=== PATIENT | male | born 1985 | race Caucasian/White ===

== ENCOUNTER 2019-09-16 16:38 | Emergency (ER) | payer BC, SELFPAY ==
--- NOTE | 2019-09-16 16:45 | ED.GENADULT ---
HPI - General Adult General Chief complaint: Unspecified Stated complaint: muscle aches Time Seen by Provider: 09/16/19 17:05 Source: patient Mode of arrival: ambulatory Limitations: no limitations History of Present Illness HPI narrative: 34-year-old male patient presents the [facility] care with request for return to work note. Patient states that yesterday he was working out into the heat. Patient states that he thought he was staying well-hydrated and then on the way home he started getting spasms to his back. Patient states it was happening periodically throughout the night and states he was just very tired when he got home. Patient states he woke up this morning to go to work but continued to feel very tired and having muscle spasms and called off work today. Patient here because he is requesting note. Denies any fevers, nausea, vomiting or diarrhea. Related Data Allergies Allergy/AdvReac Type Severity Reaction Status Date / Time meloxicam Allergy Unknown Unknown Verified 09/16/19 17:19 No Known Allergies Allergy Verified 09/16/19 17:19 Review of Systems Review of Systems: Narrative: CONSTITUTIONAL: Denies fever, chills, or sweats. EYES: Denies visual changes, redness, or discharge. ENT: Denies rhinorrhea, congestion, sore throat, or otalgia. CARDIOVASCULAR: Denies chest pain, palpitations, or edema. RESPIRATORY: Denies cough or dyspnea. GASTROINTESTINAL: Denies abdominal pain, nausea, vomiting, or diarrhea. GENITOURINARY: Denies dysuria or hematuria. SKIN: Denies rash or itching. MUSCULOSKELETAL: Denies back pain, joint pain, or myalgia. Positive muscle aches and spasms NEUROLOGIC: Denies headache, numbness, or weakness. PSYCHIATRIC: Denies anxiety or depression. [facility] Family History Family History Father Family history of diabetes mellitus in first degree relative Social History Social History Smoking status: Never smoker Alcohol intake: never Comments At the time of my signature I agree with nursing past medical history, surgical, social, and family history. There is no relevant family history pertinent to the presenting complaint. Exam Narrative: Exam Narrative: GENERAL: Well-appearing, well-nourished, and in no acute distress. HEAD: Normocephalic, atraumatic. EYES: PERRLA and EOMI. ENT: Nares clear, no rhinorrhea or epistaxis. Mucous membranes moist. Posterior pharynx with no erythema, tonsillectomy, exudates or lesions present. Bilateral TMs are clear with no erythema or foreign bodies in the canal. NECK: Supple. No lymphadenopathy CHEST: Clear to auscultation. No respiratory distress. HEART: Regular rate and rhythm. No murmur heard. Normal peripheral pulses. ABDOMEN: Soft, nontender, nondistended, normal active bowel sounds. EXTREMITIES: Normal range of motion. No edema. SKIN: Warm, dry, no rash. NEURO: No focal deficits. Alert and oriented x3. Course Vital Signs Vital signs: Vital Signs Temperature 36.7 C 09/16/19 16:50 Pulse Rate 91 09/16/19 16:50 Respiratory Rate 16 09/16/19 16:50 Blood Pressure 134/79 09/16/19 16:50 Pulse Oximetry 97 09/16/19 16:50 Temperature 36.7 C 09/16/19 16:50 Pulse Rate 91 09/16/19 16:50 Respiratory Rate 16 09/16/19 16:50 Blood Pressure 134/79 09/16/19 16:50 Pulse Oximetry 97 09/16/19 16:50 Vital signs reviewed. The patient has been informed that they may have pre-hypertension or Hypertension based on a BP reading in the department. I recommend that the patient call the primary care provider listed on their discharge instructions or a physician of their choice this week to arrange follow up for further evaluation of possible pre-hypertension or Hypertension Medical Decision Making Differential Diagnosis Differential Diagnosis: Differential diagnosis: Allergic rhinitis, chronic sinusitis, tonsillitis, acute sinusitis, infect
[2019-09-16 16:50] VITALS: BP 134/79; PULSE 91; RESP 16; TEMP 36.7; O2SAT 97
--- NOTE | 2019-09-16 17:15 | PCDIET ---
Patient is requesting a work note to return to work at this time. He states that yesterday he began having muscle spasms after getting off work and was very tired and could not sleep restfully through the night. Patient states he slept several hours today and is no longer feeling tired or having muscle spasms. He states that he attributes his issues with the fact that he works outdoors and the symptoms he felt were heat related. His workplace insists that he have a note to return to work.
== END 2019-09-16 17:25 | disposition home or self-care (01) ==
PROVIDERS: Emergency Provider Nurse Practitioner Family
DX: M79.10 Myalgia, unspecified site (principal); Z20.828 Contact with and (suspected) exposure to other viral communicable diseases; T67.9XXA Effect of heat and light, unspecified, initial encounter
CPT/HCPCS: 99203; G0463

== ENCOUNTER 2019-10-24 13:22 | Emergency (ER) | payer BC, SELFPAY ==
--- NOTE | 2019-10-24 13:26 | ED.GENADULT ---
HPI - General Adult General Chief complaint: Upper Respiratory Infection Stated complaint: cough/vomitting/lightheaded Time Seen by Provider: 10/24/19 13:49 Source: patient and RN notes reviewed Mode of arrival: ambulatory Limitations: no limitations History of Present Illness HPI narrative: This is a 34 years old male presented office for evaluation of dry cough for two days. He coughs so hard that he vomits. He also reports feeling malaise, tired/exhausted with decrease in appetite. He only had a bowl of cereal for breakfast all day. Denies sick contact. He calls off work yesterday and now he can not go back until he gets a note. Related Data Home Medications Medication Instructions Recorded Confirmed No Home Medications 09/16/19 09/16/19 Allergies Allergy/AdvReac Type Severity Reaction Status Date / Time meloxicam Allergy Unknown Unknown Verified 10/24/19 13:51 Review of Systems Review of Systems: Narrative: CONSTITUTIONAL: Denies fever, chills ENT: Reports slight sore throat. Denies otalgia. CARDIOVASCULAR: Denies chest pain, palpitation RESPIRATORY: Denies dyspnea, wheezing. Reports cough GASTROINTESTINAL: Denies abdominal pain. Reports feeling nausea with decrease appetite. SKIN: Denies rash MUSCULOSKELETAL: Denies acute back pain NEUROLOGIC: Denies lightheaded All other systems reviewed are negative, except as documented in HPI. [facility] Family History Family History Father Family history of diabetes mellitus in first degree relative Social History Social History (Updated 10/24/19 @ 13:50 by GAVI Spivey) Smoking status: Former smoker Alcohol intake: never Gender identity (if verbalized by the patient): Male Comments At time of signature, I agree with nursing past medical, surgical, social and family history. There is no relevant family history pertinent to the presenting complaint. Exam Narrative: Exam Narrative: GENERAL: This is a well-nourished, well-developed patient, in no apparent distress. EYES: Sclera clear/white. Vision is grossly intact. EARS: External ears normal, auditory canals clear and without drainage, TMs normal without perforation. Hearing grossly intact. NOSE: External nose normal with no obvious nasal discharge, nares without redness, no rhinorrhea. THROAT: Mucous membranes moist, posterior pharynx clear. NECK: Neck supple, non-tender without lymphadenopathy, masses or thyromegaly. CARDIOVASCULAR: Regular rate and rhythm without murmurs, gallops, or rubs. RESPIRATORY: Clear to auscultation. Breath sounds equal bilaterally. No wheezes, rales, or rhonchi. GASTROINTESTINAL: Abdomen soft, non-tender, nondistended. Bowel sounds are active. No hepato-splenomegaly, or palpable masses. No guarding. SKIN: warm, intact with no suspicious lesions or rash, good texture and turgor. NEURO: awake, alert, and oriented to person, place and time. There were no obvious focal neurologic abnormalities. Steady gait Rosetta Coma Scale Eye Opening: Spontaneous 4 [place] Coma Scale Motor: Obeys Commands 6 Ros[place] Coma Scale Verbal: Oriented 5 Course Vital Signs Vital signs: Vital Signs Temperature 98.3 F 10/24/19 13:27 Pulse Rate 91 10/24/19 13:27 Respiratory Rate 18 10/24/19 13:27 Blood Pressure 143/88 H 10/24/19 13:27 Pulse Oximetry 98 10/24/19 13:27 Temperature 98.3 F 10/24/19 13:27 Pulse Rate 91 10/24/19 13:27 Respiratory Rate 18 10/24/19 13:27 Blood Pressure 143/88 H 10/24/19 13:27 Pulse Oximetry 98 10/24/19 13:27 Medical Decision Making MDM Narrative Medical decision making narrative: Discharge instructions reviewed with patient, as well as provided in writing per nursing staff. The instructions also include specific and strict return/GO TO THE ER as well as f/u information. All questions have been answered, and the patient deny any further questions with discharge and discharge
[2019-10-24 13:27] VITALS: BP 143/88; PULSE 91; RESP 18; TEMP 36.8; O2SAT 98
== END 2019-10-24 14:09 | disposition home or self-care (01) ==
PROVIDERS: Emergency Provider Nurse Practitioner
DX: R05 Cough (principal); Z20.828 Contact with and (suspected) exposure to other viral communicable diseases; Z87.891 Personal history of nicotine dependence
CPT/HCPCS: 99211; G0463

== ENCOUNTER 2020-05-14 10:14 | Emergency (ER) | payer BC, SELFPAY ==
--- NOTE | ~2020-05-14 | XR_ITS ---
EXAMINATION: XR wrist LT min 3V EXAM DATE: 05/14/2020 10:32 INDICATION: No known recent injury provided at this time. Pain of the ulna styloid. TECHNIQUE: Left wrist frontal, frontal with ulnar deviation, oblique and lateral projections obtained and reviewed. There is no prior study for comparison. FINDINGS: Left wrist scapholunate joint space is maintained. There are no acute fractures or dislocat ions identified. There is no subcutaneous gas. The soft tissue is unremarkable. There are no radi opaque foreign bodies. There are no bony erosions identified. The stylet unremarkable. IMPRESSION: 1. Unremarkable XR wrist LT min 3V exam. Reviewed, dictated and finalized at location B. ANY DRIVER
--- NOTE | 2020-05-14 10:18 | ED.UPPEXIN ---
HPI - Extremity Injury (Upper) General Chief Complaint: Extremity Injury, Upper Stated Complaint: left wrist injury Time Seen by Provider: 05/14/20 10:19 Source: patient and RN notes reviewed History of Present Illness HPI narrative: Patient is a 34-year-old male who presents the urgent care with complaints of left wrist pain. 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 States that he does not believe that he hit the left wrist or fell onto the left wrist but did notice that the pain started a few hours after. Patient denies of taking any pain medication, using ice or an Juan wrap since the injury 6 days ago. Patient states that there is increased pain with any pressure on the wrist or rotation. Patient is right-hand dominant. No other acute complaints or injuries. No acute distress noted. Patient aware of the plan of care. Some parts of this dictation were generated by voice recognition software and may contain typographical and/or grammatical inaccuracies. Related Data Home Medications Medication Instructions Recorded Confirmed No Home Medications 05/14/20 05/14/20 Allergies Allergy/AdvReac Type Severity Reaction Status Date / Time meloxicam Allergy Unknown Unknown Verified 05/14/20 10:41 Review of Systems Review of Systems: Narrative: CONSTITUTIONAL: Denies fever, chills, or sweats. EYES: Denies visual changes, redness, or discharge. ENT: Denies rhinorrhea, congestion, sore throat, or otalgia. CARDIOVASCULAR: Denies chest pain, palpitations, or edema. RESPIRATORY: Denies cough or dyspnea. GASTROINTESTINAL: Denies abdominal pain, nausea, vomiting, or diarrhea. GENITOURINARY: Denies dysuria or hematuria. SKIN: Denies rash or itching. MUSCULOSKELETAL: Reports of left wrist pain NEUROLOGIC: Denies headache, numbness, or weakness. All other systems reviewed are negative, except as documented in HPI. [facility] Family History Family History Father Family history of diabetes mellitus in first degree relative Social History Social History (Updated 10/24/19 @ 13:50 by GAVI Spivey) Smoking status: Former smoker Alcohol intake: never Gender identity (if verbalized by the patient): Male Comments At the time of my signature, I reviewed and agree with the nursing past medical, surgical, social, and family history. There is no relevant family history pertinent to the patient complaint. Exam Narrative: Exam Narrative: GENERAL: This is a well-nourished, well-developed patient, in no apparent distress. HEAD: normocephalic, atraumatic. EYES: PERRL. Sclera clear/white. Vision is grossly intact. EARS: External ears normal NOSE: External nose normal with no obvious nasal discharge, nares without redness, no rhinorrhea. THROAT: Mucous membranes moist NECK: Neck supple SKIN: warm, intact with no suspicious lesions or rash, good texture and turgor. NEURO: awake, alert, and oriented to person, place and time. There were no obvious focal neurologic abnormalities. EXTREMITIES: No obvious injury, deformity, edema, ecchymosis or erythema noted to left upper extremity/wrist. Positive strong left radial pulse with capillary refill less than 2 seconds. Tenderness to the ulnar aspect of the left wrist. Pain increased with rotation of the left upper extremity. Course Vital Signs Vital signs: Vital Signs Temperature 99.2 F 05/14/20 10:20 Pulse Rate 90 05/14/20 10:20 Respiratory Rate 16 05/14/20 10:20 Blood Pressure 132/79 05/14/20 10:20 Pulse Oximetry 98 05/14/20 10:20 Temperature 99.2 F 05/14/20 10:20 Pulse Rate 90 05/14/20 10:20 Respiratory Rate 16 05/14/20 10:20 Blood Pressure 132/79 05/14/20 10:20 Pulse Oximetry 98 05/14/20 10:20 Reviewed MDM - Extremity Injury (Upper) MDM Narrative Medical decision making narrative: Reviewed x-ray results with the patient. He is aware that x-ray
[2020-05-14 10:20] VITALS: BP 132/79; PULSE 90; RESP 16; TEMP 37.3; O2SAT 98
== END 2020-05-14 10:50 | disposition home or self-care (01) ==
PROVIDERS: Emergency Provider Nurse Practitioner Family
DX: M77.8 Other enthesopathies, not elsewhere classified (principal); Z87.891 Personal history of nicotine dependence
CPT/HCPCS: 73110; 99213; G0463

== ENCOUNTER 2021-05-09 10:33 | Outpatient (CLI) | payer OTHER, SELFPAY ==
--- NOTE | ~2021-05-09 | MR_ITS ---
EXAMINATION: MR chest wo/w con DATE: 05/09/2021 12:34 INDICATION: Left arm weakness. Paresthesias. TECHNIQUE: Magnetic resonance imaging (MRI) of the chest and brachial plexus was performed without an d with 20 mL MultiHance intravenous contrast. Sequences included coronal and sagittal T2-weighted FS FSE, axial, coronal, and sagittal T1-weighted FSE, coronal STIR FSE, and postcontrast axial, sagittal , and coronal T1-weighted FS FSE. COMPARISON: None. FINDINGS: There are no pathologically enlarged lymph nodes. There is no abnormal mass. The brachial p bret is unremarkable. The musculature is normal. No denervation. Partially visualized is syringohydr omyelia in thoracic spine measuring up to a diameter of 4 mm. IMPRESSION: 1. 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 Thoracic spine MRI without and with contrast is recomm ended. Reviewed, dictated and finalized at location A. LS AUDITOR IMPRESSION: 1. 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 Thoracic spine MRI without and w ith contrast is recommended.
[2021-05-09 11:20] LABS: Estimated Glomerular Filt Rate > 60
== END 2021-05-09 10:34 | disposition home or self-care (01) ==
LOC: ANHIMG 10:37
PROVIDERS: PCP Emergency Medicine; Visit Provider Emergency Medicine
DX: M62.81 Muscle weakness (generalized) (principal); R20.2 Paresthesia of skin; G95.0 Syringomyelia and syringobulbia
CPT/HCPCS: 71552; A9577

== ENCOUNTER 2021-11-03 21:04 | Emergency (ER) | payer OTHER, SELFPAY ==
--- NOTE | ~2021-11-03 | XR_ITS ---
EXAMINATION: XR chest 2V Exam Date/Time: 11/03/2021 21:20 CDT HISTORY: CHEST PAIN X TODAY, NO CARDIAC HX, NO LUNG HX Comparison: None available. RESULT: Lines, tubes, and devices: None. Lungs and pleura: Ill-defined patchy groundglass opacities in the mid and lower lungs, best seen in the frontal view. Cardiomediastinal silhouette: Stable. Other: No acute osseous or upper abdominal finding. IMPRESSION: Pulmonary opacities may reflect atypical/viral infection in the appropriate clinical context. Reviewed, dictated and finalized at location K. IMPRESSION: Pulmonary opacities may reflect atypical/viral infection in the appropriate cli nical context.
[2021-11-03 21:06] VITALS: BP 135/89; PULSE 105; RESP 20; TEMP 36.2; O2SAT 98
--- NOTE | 2021-11-03 21:14 | ECG_ITS ---
Measurements Intervals [place] Rate: 97 P: 26 DC: 147 QRS: -29 QRSD: 101 T: 10 QT: 326 QTc: 416 Interpretive Statements SINUS RHYTHM BORDERLINE LEFT AXIS DEVIATION [QRS AXIS < -20] NO PREVIOUS ECG AVAILABLE FOR COMPARISON Electronically Signed On 11-04-2021 19:53:29 CDT by Ginger Jones M.D.
[2021-11-03 21:24] LABS: Basophils Absolute Auto 0.1 K/mm3 (0.0-0.1); Basophils Percent Auto 0.5 % (0.2-1.2); Eosinophils Absolute Auto 0.4 K/mm3 (0-0.3); Eosinophils Percent Auto 2.9 % (0-4.4); Hematocrit 48.2 % (42.0-52.0); Hemoglobin 16.3 g/dL (14.0-18.0); Immature Granulocyte Percent A 0.7 % (0-0.5); Lymphocytes Absolute Auto 3.39 K/mm3 (0.9-3.2); Lymphocytes Percent Auto 25.4 % (18.3-44.2); Mean Corpuscular HGB Conc 33.8 g/dl (32-36); Mean Corpuscular Hemoglobin 30.1 pg (26-34); Mean Corpuscular Volume 89.1 fl (80-100); Mean Platelet Volume 9.3 fl (7.4-10.4); Monocytes Absolute Auto 1.1 K/mm3 (0.1-0.6); Neutrophils Absolute Auto 8.3 K/mm3 (1.3-6.7); Neutrophils Percent Auto 62.5 % (45.5-73.1); Platelet Count Result 355 k/mm3 (150-375); Red Blood Count 5.41 M/mm3 (4.6-6.20); Red Cell Distribution Width 12.8 % (11.5-14.5); White Blood Count 13.3 K/mm3 (4.5-10.0)
[2021-11-03 21:35] LABS: Alanine Aminotransferase 45 U/L (6-50); Albumin Level 4.4 g/dL (3.5-5.1); Alkaline Phosphatase 84 U/L (38-126); Anion Gap 11 mmol/L (8-16); Aspartate Amino Transferase 41 U/L (17-59); Bilirubin,Total 0.3 mg/dL (0.2-1.3); Blood Urea Nitrogen 10 mg/dL (9-20); Calcium 9.4 mg/dL (8.4-10.2); Carbon Dioxide 26 mmol/L (22-30); Chloride 102 mmol/L (98-107); Estimated CRCL calculation 183 ml/min; Estimated Glomerular Filt Rate > 60; Glucose 114 mg/dL (65-110); Lipase 162 U/L (23-300); Potassium 4.2 mmol/L (3.4-5.0); Sodium 139 mmol/L (137-145)
[2021-11-03 21:44] LABS: Partial Thromboplastin Time 25.5 SECONDS (22.3-36.8)
[2021-11-03 21:46] LABS: Troponin I < 0.012 ng/mL (0.000-0.034)
[2021-11-03 21:52] LABS: NT Pro B Type Natriuretic Pept 28 pg/mL (5-100)
[2021-11-03] MEDS: BELLADONNA ALK/PHENOB ELIX 10 ML, MAG HYDROX/ALUMINUM HYD/SIMETH 30 ML, LIDOCAINE HCL 2... PO (22:12)
[2021-11-03] MEDS: ASPIRIN 81 MG CHEWABLE TABLET 324 MG PO (22:12)
[2021-11-03 22:31] VITALS: BP 127/97; O2SAT 96
[2021-11-03] MEDS: NITROGLYCERIN SL 0.4 MG TABLET SUBLINGUAL (22:31)
[2021-11-03 23:45] LABS: SARS-CoV-2 RNA PCR Negative
[2021-11-03 23:46] VITALS: BP 139/93; PULSE 96; RESP 17; O2SAT 96
[2021-11-04 00:01] VITALS: BP 146/90; PULSE 94; RESP 22; O2SAT 96
[2021-11-04 00:16] VITALS: BP 134/71; PULSE 95; RESP 18; O2SAT 95
--- NOTE | 2021-11-04 00:30 | ED.GENADULT ---
HPI - General Adult General Chief complaint: Chest Pain Stated complaint: chest pain Time Seen by Provider: 11/03/21 21:16 History of Present Illness HPI narrative: Patient is a 36-year-old gentleman who presents the emergency department with chief complaint of chest pain. Patient reports this evening starting with discomfort in his feet the chest and reports it felt as though his heart was beating very hard similar to a flat tire of thumping. Patient states that he did not get diaphoretic denies radiation to his arm. Patient reports no prior history of cardiac disease. Related Data Home Medications Medication Instructions Recorded Confirmed No Home Medications 05/14/20 05/14/20 Allergies Allergy/AdvReac Type Severity Reaction Status Date / Time No Known Allergies Allergy Verified 11/03/21 21:11 Review of Systems Review of Systems: A 10 system review of systems was completed on the patient and is negative except for what is stated in the HPI. Nursing and ancillary documentation was reviewed. [facility] Family History Family History Father Family history of diabetes mellitus in first degree relative Social History Social History Smoking status: Former smoker Alcohol intake: never Gender identity (if verbalized by the patient): Male Exam Narrative: GENERAL: Well-appearing, well-nourished, and in no acute distress. HEAD: Normocephalic, atraumatic. EYES: PERRLA and EOMI. ENT: Nares clear, no rhinorrhea or epistaxis. Mucous membranes moist. NECK: Supple. CHEST: Clear to auscultation. No respiratory distress. HEART: Regular rate and rhythm. No murmur heard. Normal peripheral pulses. ABDOMEN: Soft, nontender, nondistended, normal active bowel sounds. EXTREMITIES: Normal range of motion. No edema. SKIN: Warm, dry, no rash. NEURO: No focal deficits. Alert and oriented x3. PSYCH: Normal mood and affect. Course Course Emergency Course: EKG is sinus rhythm rate of [address] elevation or ST depression Vital Signs Vital signs: Vital Signs Temperature 36.2 C L 11/03/21 21:06 Pulse Rate 105 H 11/03/21 21:06 Respiratory Rate 20 11/03/21 21:06 Blood Pressure 135/89 11/03/21 21:06 Pulse Oximetry 98 11/03/21 21:06 Oxygen Delivery Room Air 11/03/21 21:06 Temperature 36.2 C L 11/03/21 21:06 Pulse Rate 94 11/04/21 00:01 Respiratory Rate 22 H 11/04/21 00:01 Blood Pressure 146/90 H 11/04/21 00:01 Pulse Oximetry 96 11/04/21 00:01 Oxygen Delivery Room Air 11/03/21 21:06 Medical Decision Making Vital Signs Vital Signs: Vital Signs Temperature 36.2 C L 11/03/21 21:06 Pulse Rate 105 H 11/03/21 21:06 Respiratory Rate 20 11/03/21 21:06 Blood Pressure 135/89 11/03/21 21:06 Pulse Oximetry 98 11/03/21 21:06 Oxygen Delivery Room Air 11/03/21 21:06 Temperature 36.2 C L 11/03/21 21:06 Pulse Rate 94 11/04/21 00:01 Respiratory Rate 22 H 11/04/21 00:01 Blood Pressure 146/90 H 11/04/21 00:01 Pulse Oximetry 96 11/04/21 00:01 Oxygen Delivery Room Air 11/03/21 21:06 Lab Data Result diagrams: 11/03/21 21:18 11/03/21 21:18 Labs: Lab Results 11/03/21 11/03/21 11/03/21 Range/Units 21:18 21:18 21:18 WBC 13.3 H (4.5-10.0) K/mm3 RBC 5.41 (4.6-6.20) M/mm3 Hgb 16.3 (14.0-18.0) g/dL Hct 48.2 (42.0-52.0) % MCV 89.1 (80-100) fl MCH 30.1 (26-34) pg MCHC 33.8 (32-36) g/dl RDW 12.8 (11.5-14.5) % Plt Count 355 (150-375) k/mm3 MPV 9.3 (7.4-10.4) fl Immature Gran % (Auto) 0.7 H (0-0.5) % Neut % (Auto) 62.5 (45.5-73.1) % Lymph % (Auto) 25.4 (18.3-44.2) % Jackson % (Auto) 8.0 (2.6-8.5) % Eos % (Auto) 2.9 (0-4.4) % Baso % (Auto) 0.5 (0.2-1.2) % Lymph # (Auto) 3.39 H (0.9-3.2) K/mm3 Jackson # (Auto) 1.1 H (0.1-
[2021-11-04 01:00] LABS: Troponin I < 0.012 ng/mL (0.000-0.034)
== END 2021-11-04 | disposition home or self-care (01) ==
PROVIDERS: Emergency Provider Emergency Medicine; PCP Emergency Medicine
DX: R07.89 Other chest pain (principal); Z20.822 Contact with and (suspected) exposure to COVID-19
CPT/HCPCS: 36415; 71046; 80053; 83690; 83880; 84484; 85025; 85610; 85730; 93005; 99284; A9270; C9803; U0003; U0005

== ENCOUNTER 2023-07-24 21:37 | Emergency (ER) | payer OTHER, SELFPAY ==
[2023-07-24 21:38] VITALS: BP 140/100; PULSE 99; RESP 18; TEMP 36.9; O2SAT 97
--- NOTE | 2023-07-24 21:53 | PC.NURSE ---
Pt seen in triage bay by harjeet lubin.
--- NOTE | 2023-07-24 21:55 | ED.EAR ---
HPI - Ear Problem General Chief complaint: Ear Stated complaint: right ear pain Time Seen by Provider: 07/24/23 21:55 Source: patient Mode of arrival: ambulatory Limitations: no limitations History of Present Illness HPI Narrative: This is a 37 year old male that presents to the ER for right ear pain as well as dentalgia. Ongoing over the last week. Reports he has been taking over the counter pain medication with some relief. Denies fever, edema, erythema or drainage from the ear. Related Data Allergies Allergy/AdvReac Type Severity Reaction Status Date / Time No Known Allergies Allergy Verified 07/24/23 21:54 Review of Systems Review of Systems: CONSTITUTIONAL: Denies fever, ENT: Reports otalgia. All systems reviewed & are unremarkable except as noted in HPI and below PMFSH Past Medical History Medical History (Updated 07/24/23 @ 21:58 by Sheila Clay PA-C) No active medical problems Family History Family History Father Family history of diabetes mellitus in first degree relative Social History Social History Smoking status: Former smoker Alcohol intake: never Gender identity (if verbalized by the patient): Male Exam Narrative: GENERAL: Well-appearing, well-nourished, and in no acute distress. HEAD: Normocephalic, atraumatic. EYES: EOMI. ENT: Nares clear, no rhinorrhea or epistaxis. Mucous membranes moist. Oropharynx without tonsillar hypertrophy exudate or other lesions. Bilateral TMs pearly marley non-bulging. Bilateral external auditory canals are normal. Poor dentition with several fractured teeth. No focal fluctuance to suggest abscess. Floor of mouth is soft. No trismus NECK: Supple. No adenopathy or masses. CHEST: No respiratory distress. HEART: Regular rate EXTREMITIES: Normal range of motion. No edema. SKIN: Warm, dry, no rash. NEURO: No focal deficits. Alert and oriented x3. PSYCH: Normal mood and affect Course Course Emergency Course: Patient agrees with plan of care Vital Signs Vital signs: Vital Signs Temperature 98.4 F 07/24/23 21:38 Pulse Rate 99 07/24/23 21:38 Respiratory Rate 18 07/24/23 21:38 Blood Pressure 140/100 H 07/24/23 21:38 Pulse Oximetry 97 07/24/23 21:38 Oxygen Delivery Room Air 07/24/23 21:38 Temperature 98.4 F 07/24/23 21:38 Pulse Rate 99 07/24/23 21:38 Respiratory Rate 18 07/24/23 21:38 Blood Pressure 140/100 H 07/24/23 21:38 Pulse Oximetry 97 07/24/23 21:38 Oxygen Delivery Room Air 07/24/23 21:38 Medical Decision Making MDM Narrative Medical decision making narrative: Patient presents to the emergency department for right-sided otalgia. Also reporting dentalgia on the right side. He is afebrile and nontoxic appearing. Bilateral external auditory canals as well as TMs are normal without signs of infection. He does have poor dentition, but no focal abscess. Will be started on oral antibiotics and was instructed to follow-up with a dentist. He was given warnings to return to the ER Differential Diagnosis Differential Diagnosis: Dentalgia, dental abscess, dental caries, otitis media, otitis externa Vital Signs Vital Signs: Vital Signs Temperature 98.4 F 07/24/23 21:38 Pulse Rate 99 07/24/23 21:38 Respiratory Rate 18 07/24/23 21:38 Blood Pressure 140/100 H 07/24/23 21:38 Pulse Oximetry 97 07/24/23 21:38 Oxygen Delivery Room Air 07/24/23 21:38 Temperature 98.4 F 07/24/23 21:38 Pulse Rate 99 07/24/23 21:38 Respiratory Rate 18 07/24/23 21:38 Blood Pressure 140/100 H 07/24/23 21:38 Pulse Oximetry 97 07/24/23 21:38 Oxygen Delivery Room Air 07/24/23 21:38 Critical Care Time Critical Care Time Critical Care Time: No Discharge Plan Discharge Clinical Impression: Dentalgia Patient Disposition: Home, Self-Care Cond
[2023-07-24 22:53] VITALS: BP 137/98; PULSE 68; RESP 20; O2SAT 96
== END 2023-07-24 22:55 | disposition home or self-care (01) ==
LOC: ANHED 22:03
PROVIDERS: Emergency Provider Physician Assistant
DX: K08.89 Other specified disorders of teeth and supporting structures (principal)
CPT/HCPCS: 99283

== ENCOUNTER 2024-01-07 14:08 | Emergency (ER) | payer OTHER, SELFPAY ==
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
[2024-01-07 14:16] VITALS: BP 148/97; PULSE 102; RESP 20; TEMP 37.3; O2SAT 97
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
== END 2024-01-07 15:20 | disposition home or self-care (01) ==
PROVIDERS: Emergency Provider Nurse Practitioner Family; PCP Nurse Practitioner
DX: S20.212A Contusion of left front wall of thorax, initial encounter (principal); V49.9XXA Car occupant (driver) (passenger) injured in unspecified traffic accident, initial encounter
CPT/HCPCS: 71046; 71100; 71101; 99213; G0463